=== PATIENT | female | born 1955 | race Caucasian/White ===

== ENCOUNTER 2017-08-28 17:13 | Emergency (ER) | payer BC ==
[~2017-08-28] VITALS: Ht 162.6 cm; Wt 58.1 kg
[2017-08-28 18:18] VITALS: BP 129/81
== END 2017-08-28 18:00 | disposition home or self-care (01) ==
LOC: FSED 17:13
DX: R41.82 Altered mental status, unspecified (principal); R41.0 Disorientation, unspecified
CPT/HCPCS: 99282